=== PATIENT | female | born 1975 | race Caucasian/White ===

== ENCOUNTER → 2017-04-22 | Outpatient (CLI) | payer OTHER | END | disposition home or self-care (01) | LOC: NM 07:44 | DX: K30 Functional dyspepsia (principal) | CPT/HCPCS: 78264; A9541 ==

== ENCOUNTER → 2017-10-15 | Outpatient (CLI) | payer OTHER | END | disposition home or self-care (01) | LOC: ECHO 09:35 | DX: R00.2 Palpitations (principal) | CPT/HCPCS: 93306 ==

== ENCOUNTER → 2018-03-11 | Outpatient (CLI) | payer OTHER ==
[2018-01-10 11:00] VITALS: BP 85/55
[~2018-03-11] MED LIST: CYCL10TA2 PO; IOHEXOL 240 MG/ML 50ML VIAL. PO ONE; IOHEXOL 300 MG/ML 100ML VIAL. IV ONE; LEVO137T3 PO; LEVO150T PO
--- NOTE | 2018-03-11 15:38 | RAD ---
Examination: CT of the abdomen pelvis with oral and IV contrast HISTORY: History of abdominal pain COMPARISON: None available TECHNIQUE: Axial CT images of the abdomen pelvis were performed with oral and IV contrast. Coronal and sagittal reformats are performed Exposure: One or more of the following individualized dose reduction techniques were utilized for this examination: 1. Automated exposure control 2. Adjustment of the mA and/or kV according to patient size 3. Use of iterative reconstruction technique FINDINGS: The bibasilar lungs are clear No evidence of free air identified in the abdomen Mild decreased attenuation noted in the liver likely hepatic steatosis. The visualized spleen, adrenals grossly appears unremarkable The gallbladder is not identified Small hiatal hernia is noted. The stomach is mildly distended The visualized pancreas grossly appears unremarkable The small bowel is nondilated There is mild thickened appearance of the wall of the descending colon and the distal aspect of the ascending colon could be nondistention or mild colitis. The appendix is normal. The bilateral kidneys enhance symmetrically. Urinary bladder is mildly distended No evidence of lytic bony destructive lesion IMPRESSION: 1. Mild thickened appearance of the wall of the descending colon and the distal aspect of the ascending colon probably due to nondistention or colitis. Correlate clinically. 2. Mild hepatic steatosis. Electronically signed by: Augusto Dubon MD (03/11/2018 3:35 PM) [place] [id number]
== END | disposition home or self-care (01) ==
LOC: CT 12:17
PROVIDERS: ATTEND Internal Medicine Gastroenterology
DX: K76.0 Fatty (change of) liver, not elsewhere classified (principal); K44.9 Diaphragmatic hernia without obstruction or gangrene; K31.89 Other diseases of stomach and duodenum
CPT/HCPCS: 74177; Q9966; Q9967

== ENCOUNTER → 2018-03-23 | Day surgery (SDC) | payer OTHER ==
[~2018-03-23] MED LIST changes: -IOHEXOL 240 MG/ML 50ML VIAL. PO ONE; -IOHEXOL 300 MG/ML 100ML VIAL. IV ONE; +IV RINGERS,LACTATED 1000ML 1,000 ML IV SCH; +LIDOCAINE 1% PF 2 ML VIAL. ID PRN; +LIDOCAINE 1% PF 2 ML VIAL. ONE; +ONDANSETRON PF 4 MG/2 ML VIAL. IV PRN; +PROCHLORPERAZINE 10 MG/2 ML VIAL. IV PRN; +PROPOFOL 40 ML IV ONE; +fentaNYL PF VIAL 100 MCG/2 ML VIAL IV PRN
[2018-03-23 10:00] VITALS: BP 103/56
== END | disposition home or self-care (01) ==
LOC: ENDOS 08:10
PROVIDERS: ATTEND Internal Medicine Gastroenterology
DX: K64.0 First degree hemorrhoids (principal); F32.9 Major depressive disorder, single episode, unspecified; E03.9 Hypothyroidism, unspecified; Z95.0 Presence of cardiac pacemaker; Z88.5 Allergy status to narcotic agent; Z88.0 Allergy status to penicillin; Z79.899 Other long term (current) drug therapy; Z90.49 Acquired absence of other specified parts of digestive tract; Z90.710 Acquired absence of both cervix and uterus; Z98.890 Other specified postprocedural states; Z98.51 Tubal ligation status; Z82.49 Family history of ischemic heart disease and other diseases of the circulatory system
CPT/HCPCS: 45378; J2704

== ENCOUNTER 2018-06-15 21:35 | Emergency (ER) | payer OTHER ==
[2018-05-01 12:00] VITALS: BP 95/49
[~2018-06-15 21:35] MED LIST changes: +FLEC100T PO; -IV RINGERS,LACTATED 1000ML 1,000 ML IV SCH; +LEVO150T5 PO; +LEVO175T5 PO; -LIDOCAINE 1% PF 2 ML VIAL. ID PRN; -LIDOCAINE 1% PF 2 ML VIAL. ONE; +METO25TA4 PO; -ONDANSETRON PF 4 MG/2 ML VIAL. IV PRN; -PROCHLORPERAZINE 10 MG/2 ML VIAL. IV PRN; -PROPOFOL 40 ML IV ONE; -fentaNYL PF VIAL 100 MCG/2 ML VIAL IV PRN
== END 2018-06-15 23:12 | disposition left against medical advice (07) ==
LOC: ER 21:35
DX: R07.89 Other chest pain (principal); J02.9 Acute pharyngitis, unspecified; R05 Cough; Z53.21 Procedure and treatment not carried out due to patient leaving prior to being seen by health care provider

== ENCOUNTER → 2018-09-04 | Outpatient (CLI) | payer OTHER ==
[2018-05-01 12:00] VITALS: BP 95/49
--- NOTE | 2018-09-04 12:01 | RAD ---
EXAM: SMALL BOWEL SERIES. HISTORY: Right abdominal pain. COMPARISON: None. FINDINGS: A breast worker image demonstrates a normal bowel gas pattern. Pacemaker leads are partially visualized. Barium contrast material was administered orally and followed in its course through the small bowel with plain radiographs and fluoroscopy. 5 fluoroscopic images were obtained. Fluoroscopy time 0.4 minutes. The small bowel fold pattern appears normal. No small bowel lesions, strictures or dilatation are identified. The terminal ileum appears normal. Transit time was normal at approximately one hour. IMPRESSION: 1. Unremarkable small bowel series. Electronically signed by: Norm Marrero MD (09/04/2018 11:58 AM) [facility]
== END | disposition home or self-care (01) ==
LOC: RAD 08:52
PROVIDERS: ATTEND Internal Medicine Gastroenterology
DX: R10.9 Unspecified abdominal pain (principal)
CPT/HCPCS: 74250

== ENCOUNTER → 2018-09-11 | Outpatient (CLI) | payer OTHER ==
[2018-05-01 12:00] VITALS: BP 95/49
--- NOTE | 2018-09-11 17:32 | KCIC ---
BILATERAL SCREENING MAMMOGRAM History: Routine screening. Comparison: Bilateral mammogram February 07, 2014. Technique: Routine bilateral digital mammogram views were obtained. Findings: Breast Tissue Density B : There are scattered areas of fibroglandular density. A mole marker is seen in the left axilla that is marking a keloid from pacemaker. There are microcalcifications in this location that may be related to the keloid. The microcalcifications and pacer were not present on prior study. Stable benign calcification in the central left breast. There are no dominant masses, suspicious microcalcifications, or architectural distortion. IMPRESSION: No mammographic evidence of malignancy. Recommend routine screening. BI-RADS category 2: Benign findings. The images were reviewed with computer aided detection. Patient information is entered into the reminder system with a target due date for the next screening mammogram. Mammography is the most sensitive method for finding small breast cancers, but it does not detect them all and is not a substitute for careful clinical examination. A negative mammogram does not negate a clinically suspicious finding and should not result in delay in biopsying a clinically suspicious abnormality. "Our facility is accredited by the [employer] Mammography Program." Electronically signed by: Jovanny Echavarria MD (09/11/2018 5:29 PM) [id number]
== END | disposition home or self-care (01) ==
LOC: KCIC MAMMO 08:36
PROVIDERS: ATTEND Family Medicine
DX: Z12.31 Encounter for screening mammogram for malignant neoplasm of breast (principal); N64.89 Other specified disorders of breast
CPT/HCPCS: 77067

== ENCOUNTER → 2019-03-08 | Outpatient (CLI) | payer MEDICAID ==
[2018-05-01 12:00] VITALS: BP 95/49
[~2019-03-08] MED LIST changes: +REGADENOSON 0.4 MG/5 ML DISP.SYRIN. IV ONE
--- NOTE | 2019-03-08 14:18 | RAD ---
MR#: [id number] Date of Study: 03/08/2019 Ordering Physician: BECK ROMERO, Referring Physician: BLANCA HOFFMANN Tech: MACHO Kaplan ARRT (R) (N) APPROVED REPORT Test Type: Pharmacological Stress Nurse/Tech: Ronda James RN Test Indications: Chest pain Cardiac History: Pacemaker Medications: See Electronic Medical Record Medical History: See Electronic Medical Record Resting ECG: SR Resting Heart Rate: 65 bpm Resting Blood Pressure: 112/54mmHg Pretest Chest Pain: No chest pain Nurse/Tech Notes S1S2, Lungs CTA Consent: The procedure was explained to the patient in lay terms. Informed consent was witnessed. Savage eout was entered into [employer]. History and Stress Test performed by RT Perri Walker) (N) Pharm. Details Pharmacologic stress testing was performed using 0.4mg per 5ml of regadenoson given intravenously ove r 7-10 seconds. Stress Symptoms Dyspnea, Fatigue, Nausea, Flushing, stomach and leg cramping. POST EXERCISE Reason for Termination: Infusion complete Max HR: 120 bpm Max Blood Pressure: 127/73mmHg Blood Pressure response to exercise: Normal blood pressure response during stress. Heart Rate response to exercise: WNL Chest Pain: No. Arrhythmia: No. ST Change: No. INTERPRETATION Stress EKG Conclusion: No evidence of vasodilator induced EKG changes. Imaging Protocol IMAGE PROTOCOL: Rest Tc-99m/stress Tc-99m 1 day Rest: Stress: Viability: Radiopharm.Tc99m SozbbpxwmDy11z Sestamibi Mivd03pYo 33mCi Img Date 03/08/2019 03/08/2019 Inj-Img Hzmd52kat. 60min. Rest Admin Site:IV - Right AntecubitalAdministrator:MACHO Kaplan ARRT (R)(N) Stress Admin Site: IV - Right AntecubitalAdministrator: RT Perri Walker)(N) STRESS DATA End Diast. Vol.87.0mlLVEDV index BSA46.0ml End Syst. Vol.17.0mlLVESV index BSA9.0ml Myocardial Jcor482.0gEject. Inqykxtb91.5% Stress Scores Regional WT0.00Summed WT0.00 Regional WM0.00Summed WM1.00 The rest and stress images show normal perfusion, normal contraction and thickening. LV Perf. Quant 17 Seg. SSS0.00 17 Seg. SRS0.00 17 Seg. SDS0.00 Stress Defect Extent (% LAD)0.00Rest Defect Extent (% LAD)0.00Rev. Defect Extent (% LAD)0.00 Stress Defect Extent (% LCX) 0.00Rest Defect Extent (% LCX)0.00Rev. Defect Extent (% LCX)0.00 Stress Defect Extent (% RCA)0.00Rest Defect Extent (% RCA)0.00Rev. Defect Extent (% RCA)0.00 Stress Defect Extent (% MARTÍN)0.00Rest Defect Extent (% MARTÍN)0.00Rev. Defect Extent (% MARTÍN)0.00 Other Information Quality:Average Risk Assessment: Low Risk Conclusion 1. No evidence of EKG changes with stress testing. 2. Normal perfusion at stress/rest. 3. Low risk study. 4. EF > 60%. Signed by : Chris Leonard, Electronically Approved : 03/08/2019 14:18:00
--- NOTE | 2019-03-08 15:32 | CARD ---
MR#: [id number] Date of Study: 03/08/2019 Ordering Physician: BECK ROMERO, Referring Physician: BECK ROMERO Tech: Fidelina Banks RDCS APPROVED REPORT EXAM: Two-dimensional and M-mode echocardiogram with Doppler and color Doppler. Other Information Quality : Good INDICATION Sick Sinus Syndrome-Pacemaker 2D DIMENSIONS RVDd2.5 (2.9-3.5cm)Left Atrium(2D)3.4 (1.6-4.0cm) IVSd1.0 (0.7-1.1cm)Aortic Root(2D)2.8 (2.0-3.7cm) LVDd4.3 (3.9-5.9cm)LVOT Diameter2.1 (1.8-2.4cm) PWd1.0 (0.7-1.1cm)LVDs3.1 (2.5-4.0cm) FS (%) 28.5 %SV46.3 ml LVEF(%)55.2 (>50%) Aortic Valve AoV Peak Elder.144.3cm/sAoV VTI29.0cm AO Peak GR.8.3mmHgLVOT Peak Elder.146.1cm/s AO Mean GR.5mmHgAVA (VMAX)3.54cm2 WINIFRED (VTI)3.50cm2 Mitral Valve MV E Onoveqda248.5cm/sMV DECEL ZVSJ764cr MV A Xhsjgwup64.2cm/sE/A Ratio1.9 Tricuspid Valve TR P. Msjvdeyi669yh/sRAP PJZKYDEZ9cpBy TR Peak Gr.31yoRtPZMB59saDt Pulmonary Vein S1 Gimduhqt94.7cm/sD2 Zjymsjgx36.7cm/s LEFT VENTRICLE The left ventricle is normal size. There is normal left ventricular wall thickness. The left ventricu lar systolic function is normal and the ejection fraction is within normal range. The Ejection Fracti on is 55-60%. There is normal LV segmental wall motion. The left ventricular diastolic function and f illing is normal for age. RIGHT VENTRICLE The right ventricle is normal size. The right ventricular systolic function is normal. There is a pac emaker lead in the right ventricle. ATRIA The left atrium size is normal. The right atrium size is normal. A pacemaker is seen in the right atr ium consistent with history. The interatrial septum is intact with no evidence for an atrial septal d efect or patent foramen ovale as noted on 2-D or Doppler imaging. AORTIC VALVE The aortic valve is normal in structure and function. Doppler and Color Flow revealed no significant aortic regurgitation. There is no significant aortic valvular stenosis. MITRAL VALVE The mitral valve is normal in structure and function. There is no evidence of mitral valve prolapse. There is no mitral valve stenosis. Doppler and Color-flow revealed trace mitral regurgitation. TRICUSPID VALVE The tricuspid valve is normal in structure and function. Doppler and Color Flow revealed mild tricusp id regurgitation. The PA pressure was estimated at 23 mmHg. There is no tricuspid valve stenosis. PULMONIC VALVE The pulmonic valve is not well visualized. Doppler and Color Flow revealed no pulmonic valvular regur gitation. There is no pulmonic valvular stenosis. GREAT VESSELS The aortic root is normal in size. The ascending aorta is normal in size. The IVC is normal in size a nd collapses >50% with inspiration. PERICARDIAL EFFUSION There is no evidence of significant pericardial effusion. Critical Notification Critical Value: No <Conclusion> The left ventricular systolic function is normal and the ejection fraction is within normal range. Th e Ejection Fraction is 55-60%. There is normal LV segmental wall motion. There is a pacemaker lead in the right ventricle. Signed by : Chris Leonard, Electronically Approved : 03/08/2019 15:31:41
== END | disposition home or self-care (01) ==
LOC: NM 09:02
PROVIDERS: ATTEND Internal Medicine Cardiovascular Disease
DX: I36.1 Nonrheumatic tricuspid (valve) insufficiency (principal); I49.5 Sick sinus syndrome; R25.2 Cramp and spasm; R06.09 Other forms of dyspnea; R53.83 Other fatigue; R11.0 Nausea; Z95.0 Presence of cardiac pacemaker
CPT/HCPCS: 78452; 93017; 93306; A9500; J2785

== ENCOUNTER → 2019-06-23 | Outpatient (CLI) | payer MEDICAID ==
[2018-05-01 12:00] VITALS: BP 95/49
[~2019-06-23] MED LIST changes: +IOHEXOL 240 MG/ML 50ML VIAL. PO ONE; +IOHEXOL 300 MG/ML 100ML VIAL. IV ONE; -REGADENOSON 0.4 MG/5 ML DISP.SYRIN. IV ONE
--- NOTE | 2019-06-23 13:16 | KCIC ---
Examination: CT ABD PELV W/ORAL IV CONTRAST History: Right lower quadrant pain Comparison/Correlation: 03/11/2018 CT abdomen and pelvis with contrast Findings: Axial images of the abdomen and pelvis were obtained following IV and oral contrast. Sagittal and coronal reformatted images were provided. There are 2 pacemaker leads identified. Small hiatal hernia is present. Visualized lung bases are clear. Cholecystectomy noted. Liver, spleen, pancreas, adrenal glands, and kidneys are normal. Appendix is normal. Lymph nodes are present posterior to the cecum. Small umbilical hernia contains omental fat. Hysterectomy noted. Bladder is unremarkable. Moderate quantity of stool involving the proximal ulna and the colon is evident. Appendix is normal. No ascites or pelvic free fluid. Bony structures are unremarkable. Impression: Small hiatal hernia. Few nonenlarged lymph nodes about the cecum and new since the prior exam raises the question of adenitis. Appendix is normal and there are no inflammatory findings about the cecum. PQRS Compliance Statement: One or more of the following individualized dose reduction techniques were utilized for this examination: 1. Automated exposure control 2. Adjustment of the mA and/or kV according to patient size 3. Use of iterative reconstruction technique Electronically signed by: Alessandro Beaulieu MD (06/23/2019 1:13 PM) [id number]
== END | disposition home or self-care (01) ==
LOC: KCIC CT 11:40
PROVIDERS: ATTEND Family Medicine
DX: K44.9 Diaphragmatic hernia without obstruction or gangrene (principal); K42.9 Umbilical hernia without obstruction or gangrene; Z90.710 Acquired absence of both cervix and uterus; Z90.49 Acquired absence of other specified parts of digestive tract; Z95.0 Presence of cardiac pacemaker
CPT/HCPCS: 74177; Q9966; Q9967

== ENCOUNTER → 2020-04-13 | Outpatient (CLI) | payer MEDICAID ==
[2018-05-01 12:00] VITALS: BP 95/49
[~2020-04-13] MED LIST changes: -IOHEXOL 240 MG/ML 50ML VIAL. PO ONE; -IOHEXOL 300 MG/ML 100ML VIAL. IV ONE
--- NOTE | 2020-04-13 13:18 | CARD ---
MR#: [id number] Date of Study: 04/13/2020 Ordering Physician: BECK ROMERO, Referring Physician: BECK ROMERO, Tech: Ritika Johnson [facility] APPROVED REPORT EXAM: Two-dimensional and M-mode echocardiogram with Doppler and color Doppler. Other Information Quality : AverageHR: 54bpm Rhythm : NSR INDICATION Surgery/Intervention ICD/Pacemaker: 2D DIMENSIONS RVDd3.5 (2.9-3.5cm)Left Atrium(2D)3.9 (1.6-4.0cm) IVSd0.9 (0.7-1.1cm)Aortic Root(2D)2.9 (2.0-3.7cm) LVDd4.4 (3.9-5.9cm)LVOT Diameter2.2 (1.8-2.4cm) PWd1.0 (0.7-1.1cm)IVSs1.4 (0.8-1.2cm) LVDs3.7 (2.5-4.0cm)FS (%) 16.1 % PWs0.7 (0.8-1.2cm)SV29.8 ml LVEF(%)34.1 (>50%) Aortic Valve AoV Peak Elder.131.2cm/Lovely Peak GR.6.9mmHg LVOT Peak Elder.118.8cm/sAVA (VMAX)2.69cm2 Mitral Valve MV E Dzsggiqp03.7cm/sMV DECEL BZMH637hx MV A Kxfshhvu08.8cm/sMV YQD62dm E/A Ratio1.3MVA (PHT)3.18cm2 TDI E/Lateral E'4.9E/Medial E'6.8 Pulmonary Valve PV Peak Eyfnnlbw24.5cm/sPV Peak Grad.4mmHg Tricuspid Valve TR P. Woowcpcd784eu/sTR Peak Gr.22mmHg Pulmonary Vein S1 Yjshbikf18.5cm/sD2 Wpalbkqs13.9cm/s PVa udtqnzwg428vowb LEFT VENTRICLE The left ventricle is normal size. There is normal left ventricular wall thickness. The left ventricu lar systolic function is normal and the ejection fraction is within normal range. EF 55% There is nor mal LV segmental wall motion. The left ventricular diastolic function and filling is normal for age. RIGHT VENTRICLE The right ventricle is normal size. There is normal right ventricular wall thickness. The right ventr icular systolic function is normal. There is a probable pacemaker lead noted in the RA/RV. ATRIA The left atrium size is normal. The right atrium size is normal. The interatrial septum is intact wit h no evidence for an atrial septal defect or patent foramen ovale as noted on 2-D or Doppler imaging. AORTIC VALVE The aortic valve is normal in structure and function. Doppler and Color Flow revealed no significant aortic regurgitation. There is no significant aortic valvular stenosis. MITRAL VALVE The mitral valve is normal in structure and function. There is no evidence of mitral valve prolapse. There is no mitral valve stenosis. Doppler and Color-flow revealed trace mitral regurgitation. TRICUSPID VALVE The tricuspid valve is normal in structure and function. Doppler and Color Flow revealed mild tricusp id regurgitation. Estimated PAP 25 mmHg. There is no tricuspid valve stenosis. PULMONIC VALVE Doppler and Color Flow revealed trace pulmonic valvular regurgitation. There is no pulmonic valvular stenosis. GREAT VESSELS The aortic root is normal in size. The ascending aorta is normal in size. The IVC is normal in size a nd collapses >50% with inspiration. PERICARDIAL EFFUSION There is no evidence of significant pericardial effusion. Critical Notification Critical Value: No <Conclusion> The left ventricular systolic function is normal and the ejection fraction is within normal range. EF 55% There is normal LV segmental wall motion. There is a probable pacemaker lead noted in the RA/RV. Signed by : Chris Leonard, Electronically Approved : 04/13/2020 13:18:06
== END ==
LOC: ECHO 09:49
PROVIDERS: ATTEND Internal Medicine Cardiovascular Disease
DX: I07.1 Rheumatic tricuspid insufficiency (principal); I49.5 Sick sinus syndrome; Z95.0 Presence of cardiac pacemaker
CPT/HCPCS: 93306

== ENCOUNTER → 2020-04-24 | Outpatient (CLI) | payer MEDICAID ==
[2018-05-01 12:00] VITALS: BP 95/49
--- NOTE | 2020-04-24 14:06 | RAD ---
Examination: Right lateral chest wall ultrasound INDICATION: Mass in the patient's back near the dorsal aspect of the right axilla. She has had previo us surgery in the chest wall this area COMPARISON: Abdomen and pelvis CT of 06/23/2019, bilateral screening mammogram of 09/11/2018 TECHNIQUE: Grayscale and color Doppler imaging of the area of palpable concern near the right axilla is performed. The contralateral axilla was imaged for comparison purposes. FINDINGS: There is focal thickening of the skin to 3.7 x 0.6 x 2.2 cm. No additional findings in the underlying subcutaneous soft tissues. IMPRESSION: Focal skin thickening, likely representing an intradermal seroma or Alexandr Lavalee Lesion. No drainab le fluid collection or soft tissue mass otherwise noted. . Electronically signed by: Joaquín Hunt MD (04/24/2020 2:04 PM) [id number]
--- NOTE | 2020-04-25 12:46 | RAD ---
EXAMINATION: MG 2D BILAT SCREENING CLINICAL HISTORY: Screening mammogram TECHNIQUE: Digital craniocaudal and mediolateral oblique views of the bilateral breasts obtained. COMPARISON: 09/11/2018 BREAST COMPOSITION: There are scattered areas of fibroglandular density. FINDINGS: 4 mm developing asymmetry right breast upper outer quadrant in the middle to posterior third at 10:30 position approximately 10 cm from the nipple, best appreciated on CC view. No evidence of suspicious mass in the left breast. No evidence of calcifications or areas of architectural distortion bilatera lly. IMPRESSION: Small developing asymmetry right breast upper-outer quadrant. BI-RADS ASSESSMENT: Category 0: Incomplete - Need Additional Imaging Evaluation and/or Prior Mammograms for Comparison RECOMMENDATION: Recommend further evaluation with spot compression views of the right breast and possible targeted ri ght breast ultrasound if indicated. PQRS compliance statement - Patient information was entered into a reminder system with a target due date for the next mammogram. "Our facility is accredited by the [employer] Mammography Program." Electronically signed by: Obed Erickson DO (04/25/2020 12:44 PM) [id number]
== END ==
LOC: US 13:30
PROVIDERS: ATTEND Surgery
DX: Z12.31 Encounter for screening mammogram for malignant neoplasm of breast (principal); N64.89 Other specified disorders of breast
CPT/HCPCS: 76641; 77067

== ENCOUNTER → 2020-05-16 | Outpatient (CLI) | payer MEDICAID ==
[2018-05-01 12:00] VITALS: BP 95/49
--- NOTE | 2020-05-17 11:35 | RAD ---
Examination: Right digital diagnostic mammogram. INDICATION: 45-year-old woman recalled from screening for asymmetry in the upper outer right breast. COMPARISON: 04/24/2020, 09/11/2018, 02/07/2014 mammograms TECHNIQUE: 2-D spot compression views of the right breast in the CC and MLO projections were obtained in addition to full field right ML view which was reviewed with computer-aided detection. FINDINGS: Scattered fibroglandular densities. The questioned asymmetry did not persist on additional mammographic views. IMPRESSION: Negative right diagnostic mammogram. No evidence of malignancy. BI-RADS Category 1 Negative Recommend return to routine screening next due in one year. Patient entered into a reminder system with targeted due date for next mammogram. Electronically signed by: Joaquín Hunt MD (05/17/2020 11:33 AM) [id number]
== END ==
LOC: MAMMO 12:58
PROVIDERS: ATTEND Surgery
DX: R92.8 Other abnormal and inconclusive findings on diagnostic imaging of breast (principal)
CPT/HCPCS: 77065

== ENCOUNTER 2021-05-03 23:38 | Inpatient (IN) | payer MEDICAID ==
[~2021-05-03] VITALS: Ht 162.6 cm; Wt 89.0 kg
[~2021-05-03 23:38] MED LIST changes: +CYCL10TA19 PO; -CYCL10TA2 PO
--- NOTE | 2021-05-03 23:55 | PHYS DOC ---
Past Medical History Past Medical History: Hypothyroid Additional Past Medical Histor: sick sinus syndrome Past Surgical History: Pacemaker Smoking Status: Never Smoker Alcohol Use: None Drug Use: None General Adult EDM: Chief Complaint: RAPID HEART RATE HPI: HPI: Patient is a 46-year-old female presenting with via POV for palpitations. Reports symptom onset was 2 hours ago while at rest watching TV in bed attempting to fall asleep. Nothing known makes better or worse. Patient reports feelings of chest palpitations with subsequently made her nauseous, anxious and reports she felt some radiation of pain from left breast to left shoulder. Timing of symptoms waxed and waned since onset but ongoing chronicity of symptoms concerned her prompting to bring her in for evaluation. States she has feelings of palpitations most days out of the week but they do not last as long as they did today which concerned her. She is well established in outpatient setting with [facility] cardiology group as she has history of sick sinus syndrome status post dual chamber pacemaker placed in 2018. She is actually scheduled to have an outpatient echocardiogram next week. Otherwise states she is at baseline health with no other major changes in medication or chronic comorbid conditions. Reports her hypothyroidism specifically is well managed by primary care physician in outpatient setting. She is fully vaccinated against COVID-19 Review of Systems: Review of Systems: Fourteen body systems of review of systems have been reviewed. See HPI for pertinent positives and negative responses, other arenas all other systems are negative, non-pertinent or non-contributory Heart Score: C/O Chest Pain: Yes HEART Score for Chest Pain: HEART Score for Chest Pain Response (Comments) Value History Moderately Suspicious 1 ECG Normal 0 Age >45 - < 65 1 Risk Factors 1 or 2 Risk Factors 1 Troponin < Normal Limit 0 Total 3 Risk Factors: Risk Factors: DM, Current or recent (<one month) smoker, HTN, HLP, family history of CAD, obesity. Risk Scores: Score 0 - 3: 2.5% MACE over next 6 weeks - Discharge Home Score 4 - 6: 20.3% MACE over next 6 weeks - Admit for Clinical Observation Score 7 - 10: 72.7% MACE over next 6 weeks - Early Invasive Strategies Allergies: Allergies: Allergies Coded Allergies Type Severity Reaction Last Updated Verified Penicillins Allergy Intermediate 08/26/13 Yes morphine Allergy Intermediate 01/10/18 Yes Physical Exam: PE: Constitutional: Well developed, well nourished, no acute distress, non-toxic appearance. HENT: Normocephalic, atraumatic, bilateral external ears normal, oropharynx moist, no oral exudates, nose normal. Eyes: PERRLA, EOMI, conjunctiva normal, no discharge. Neck: Normal range of motion, no tenderness, supple, no stridor. Cardiovascular: Heart rate regular, sinus rhythm, no murmurs rubs or gallops. Left upper outer pacemaker present Lungs & Thorax: Bilateral breath sounds clear to auscultation Abdomen: Bowel sounds normal, soft, no tenderness, no masses, no pulsatile masses. Nonsurgical abdomen, no peritoneal signs Skin: Warm, dry, no erythema, no rash. Back: No tenderness, no CVA tenderness. Extremities: No tenderness, no cyanosis, no clubbing, ROM intact, no edema. Neurologic: Alert and oriented X 3, grossly normal motor & sensory function, no focal deficits noted. Psychologic: Anxious affect and mood Current Patient Data: Labs: Laboratory Tests Test 05/04/21 00:01 05/04/21 00:30 05/04/21 01:10 White Blood Count 8.0 x10^3/uL Red Blood Count 3.85 x10^6/uL Hemoglobin 12.5 g/dL Hematocrit 36.3 % Mean Corpuscular Volume 94 fL Mean Corpuscular Hemoglobin 32 pg Mean Corpuscular Hemoglobin Concent 34 g/dL Red Cell Distribution Width 12.6 % Platelet Count 209 x10^3/uL Neutrophils (%) (Auto) 49 % Lymphocytes (%) (Auto) 41 % Monocytes (%) (Auto) 9 % Eosinophils (%) (Auto) 1 % Basophils (%) (Auto) 1 % Neutrophils # (Auto) 3.9 x10^3/uL Lymphocytes # (Auto) 3.3 x10^3/uL Monocytes # (Auto) 0.7 x10^3/uL Eosinophils # (Auto) 0.1 x10^3/uL Basophils # (Auto) 0.0 x10^3/uL Sodium Level 142 mmol/L Potassium Level 4.1 mmol/L Chloride Level 109 mmol/L Carbon Dioxide Level 26 mmol/L Anion Gap 7 Blood Urea Nitrogen 14 mg/dL Creatinine 1.0 mg/dL Estimated GFR (Cockcroft-Gault) 60.0 Glucose Level 115 mg/dL Calcium Level 8.1 mg/dL Magnesium Level 2.0 mg/dL Troponin I High Sensitivity < 4 ng/L SR-Lrg-[id number]-Type Natriuretic Peptide 150 pg/mL SARS-CoV-2 Antigen (Rapid) Negative Urine Opiates Screen Neg Urine Methadone Screen Neg Urine Barbiturates Neg Urine Phencyclidine Screen Neg Urine Amphetamine/Methamphetamine Neg Urine Benzodiazepines Screen Neg Urine Cocaine Screen Neg Urine Cannabinoids Screen Neg Urine Ethyl Alcohol Neg Current Medications Medications (Trade) Dose Ordered Sig/Jairo Route PRN Reason Start Time Stop Time Status Last Admin Dose Admin Aspirin (Aspirin Chewable) 324 mg 1X ONCE PO 05/04/21 00:15 05/04/21 00:16 DC 05/04/21 00:34 Acetaminophen (Tylenol) 650 mg PRN Q4HRS PRN PO FEVER > 100.3'F 05/04/21 01:30 05/05/21 01:29 UNV Nitroglycerin (Nitrostat) 0.4 mg PRN Q5MIN PRN SL CHEST PAIN 05/04/21 01:30 05/05/21 01:29 UNV Vital Signs: Vital Signs Date Time Temp Pulse Resp B/P (MAP) Pulse Ox O2 Delivery O2 Flow Rate FiO2 05/03/21 23:45 98.0 83 16 113/56 (75) 99 Room Air 98.0 Vital Signs Date Time Temp Pulse Resp B/P (MAP) Pulse Ox O2 Delivery O2 Flow Rate FiO2 05/03/21 23:45 98.0 83 16 113/56 (75) 99 Room Air 98.0 EKG: EKG: EKG ordered and interpreted by myself 2351 hrs. as sinus rhythm at 72 bpm, prolonged WA at 216 otherwise unremarkable intervals, no axis deviation, no obvious ischemic findings, no STEMI Repeat EKG ordered and interpreted during time of palpitations by myself at 0145 hrs. as an atrial paced rhythm at 60 bpm, prolonged QRS at 162, QTC at 477, left axis deviation, T wave inversion noted in lead aVL, no STEMI Radiology/Procedures: Radiology/Procedures: EXAM: CHEST ONE VIEW. HISTORY: Palpitations. COMPARISON: None. FINDINGS: A frontal view of the chest is obtained. A left-sided pacemaker has its leads in the right atrium and right ventricle. There is a mild airspace opacity in the right base. There is no pneumothorax or pleural effusion. The heart is not enlarged. IMPRESSION: 1. Mild right basilar infiltrate. Electronically signed by: Norm Marrero MD (05/04/2021 12:56 AM) [facility] Course & Med Decision Making: Course & Med Decision Making ABCs unremarkable HPI physical exam and comprehensive ER work-up nonconcerning for any emergent or surgical process I disclosed all findings of ER work-up with patient and at bedside with good understanding. I disclose finding of right lower lobe infiltrate that was mild in nature, patient and requested this be treated and so IV azithr omycin and administered Patient had repeat episode of palpitations and chest pain while in ER that was subsequently captured EKG, patient being sufficiently paced in an atrial rhythm with no STEMI/ischemic findings. Heart score reviewed, joint decision made to continue treatment of pneumonia and admit for continued chest pain rule out ACS and cardiology consultation. She is pending echocardiogram next week in outpatient setting, this will likely be performed in the morning. I contacted hospitalist and cardiology services and reviewed need for hospitalization for which they accepted patient for admission. Patient and notified, they were amenable for admission and plan of care as stated. All questions and concerns addressed prior to hospitalization Dragon Disclaimer: Dragon Disclaimer: This electronic medical record was generated, in whole or in part, using a voice recognition dictation system. Departure Departure Impression: Primary Impression: Sick sinus syndrome Additional Impressions: Pacemaker Chest pain RLL pneumonia Disposition: ADMITTED INPATIENT Admitting Physician: DAWN (DR MONTERO) Condition: STABLE Referrals: RYANNE LAWSON MD (PCP) JUDAH ABEL DO May 03, 2021 23:55
[2021-05-04] MEDS ORDERED: ASPIRIN CHEWABLE 81 MG TABLET. PO ONE (00:15)
[2021-05-04 00:23] LABS: BASO % 1 % (0-3); EOS # 0.1 x10^3/uL (0.0-0.7); EOS % 1 % (0-3); HEMATOCRIT 36.3 % (36.0-47.0); HEMOGLOBIN 12.5 g/dL (12.0-15.5); LYMPH # 3.3 x10^3/uL (1.0-4.8); LYMPH % 41 % (24-48); MEAN CORPUSCULAR HEMOGLOBIN 32 pg (25-35); MEAN CORPUSCULAR HGB CONC 34 g/dL (31-37); MEAN CORPUSCULAR VOLUME 94 fL (79-100); MONO # 0.7 x10^3/uL (0.0-1.1); MONO % 9 % (0-9); NEUT # 3.9 x10^3/uL (1.8-7.7); NEUT % 49 % (31-73); PLATELET COUNT 209 x10^3/uL (140-400); RED BLOOD COUNT 3.85 x10^6/uL (3.50-5.40); RED CELL DISTRIBUTION WIDTH 12.6 % (11.5-14.5)
[2021-05-04 00:33] LABS: CALCIUM 8.1 mg/dL (8.5-10.1); POTASSIUM 4.1 mmol/L (3.5-5.1)
--- NOTE | 2021-05-04 00:59 | RAD ---
EXAM: CHEST ONE VIEW. HISTORY: Palpitations. COMPARISON: None. FINDINGS: A frontal view of the chest is obtained. A left-sided pacemaker has its leads in the right atrium and right ventricle. There is a mild airspace opacity in the right base. There is no pneumothorax or pleural effusion. The heart is not enlarged. IMPRESSION: 1. Mild right basilar infiltrate. Electronically signed by: Norm Marrero MD (05/04/2021 12:56 AM) [facility]
[2021-05-04 01:25] LABS: BARBITURATES NEG (NEG); BENZODIAZEPINES NEG (NEG); CANNABINOIDS NEG (NEG); COCAINE NEG (NEG); METHADONE NEG (NEG); OPIATES NEG (NEG); PHENCYCLIDINE NEG (NEG)
[2021-05-04 01:27] LABS: AMPHETAMINE/METHAMPHETAMINE NEG (NEG)
[2021-05-04] MEDS ORDERED: NITROGLYCERIN SUBLINGUAL 0.4 MG BOTTLE OF 25. SL PRN (01:30)
[2021-05-04] MEDS ORDERED: ACETAMINOPHEN 325 MG TABLET. PO PRN (01:30)
[2021-05-04] MEDS ORDERED: AZITHROMYCIN 500 MG in IV NORMAL SALINE 250ML 250 ML IV ONE (02:00)
[2021-05-04 03:08] VITALS: BP_SYST 99; BP_DIAS 57; BP_DIAS 63
[2021-05-04] MEDS ORDERED: LEVO75TA5 PO (03:36)
[2021-05-04] MEDS ORDERED: TOPI25TA7 PO (03:36)
[2021-05-04] MEDS ORDERED: TIZA-75 PO (03:36)
[2021-05-04] MEDS ORDERED: LEVO200T5 PO (03:36)
[2021-05-04 07:46] VITALS: BP 96/55
--- NOTE | 2021-05-04 09:01 | EKG ---
[facility] [address] [place] [address] Test Date: 2021-05-04 Test Time: 01:41:13 Pat Name: BETSY DAVIS Department: Room: [facility] Gender: F Podiatrist: : 1975 Requested By: JUDAH ABEL Order Number: [id number] Reading MD: Brock Beard Measurements Intervals [place] Rate: 60 P: [place]: QRS: -67 QRSD: 162 T: 74 QT: 472 QTc: 477 Interpretive Statements SINUS RHYTHM V PACED Electronically Signed On 05-04-2021 14:46:09 MECHANICAL METER TESTER by Brock Beard
--- NOTE | 2021-05-04 09:06 | EKG ---
[facility] [address] [place] [address] Test Date: 2021-05-03 Test Time: 23:45:40 Pat Name: BETSY DAVIS Department: Room: [facility] Gender: F Home Energy Consultant: : 1975 Requested By: JUDAH ABEL Order Number: [id number] Reading MD: Brock Beard Measurements Intervals [place] Rate: 72 P: 28 UT: 216 QRS: 45 QRSD: 86 T: 24 QT: 404 QTc: 444 Interpretive Statements SINUS RHYTHM Electronically Signed On 05-04-2021 14:47:50 CADDY/CADDIE SUPERVISOR by Brock Beard
[2021-05-04 11:00] VITALS: BP 98/65
--- NOTE | 2021-05-04 11:28 | PDOC2 ---
SHRUTHI FLORES EQUITY RESEARCH ASSOCIATE 05/04/21 1128: CARDIAC CONSULT DATE OF CONSULT Date of Consult DATE: 05/04/21 TIME: 11:16 REASON FOR CONSULT Reason for Consult: SSS, chest pain REFERRING PHYSICIAN Referring Physician: Asim SOURCE Source: Chart review, Patient HISTORY OF PRESENT ILLNESS HISTORY OF PRESENT ILLNESS This is a pleasant 46 yo female admitted for complains of palpitations. Reports that she was sitting at home last night and reports her HR fluctuating from 60- 90 without her doing anything. Also felt a little SOA at that time but denies chest pain. No nausea or vomiting. No dizziness or passing out. No recent falls or injury and compliant with her metoprolol. Reports no stimulants overusage of caffeinated beverages. Reports that she has been stressed and anxious with her 27 yo son who is now staying with her. Her son was recently discharge from having pancreatitis related to alcohol and was sober and has started drinking again. PAST MEDICAL HISTORY Cardiovascular: Other (SSS/tachy christiano syndrome) Endocrine: Hypothyroidism PAST SURGICAL HISTORY Past Surgical History Pacemaker, Cholecystectomy, Tubal Ligation, Hysterectomy FAMILY HISTORY Family History: Hypertension SOCIAL HISTORY Smoke: No ALCOHOL: none Drugs: None Lives: with Family CURRENT MEDICATIONS CURRENT MEDICATIONS Current Medications Medications (Trade) Dose Ordered Sig/Jairo Route PRN Reason Start Time Stop Time Status Last Admin Dose Admin Aspirin (Aspirin Chewable) 324 mg 1X ONCE PO 05/04/21 00:15 05/04/21 00:16 DC 05/04/21 00:34 Azithromycin 500 mg/Sodium Chloride 250 ml @ 250 mls/hr 1X ONCE IV 05/04/21 02:00 05/04/21 02:59 DC 05/04/21 02:11 ALLERGIES ALLERGIES: Coded Allergies: Penicillins (Verified Allergy, Intermediate, 05/04/21) morphine (Verified Allergy, Intermediate, 05/04/21) ROS Review of System 14 point ROS evaluated with pertinent positives noted per HPI PHYSICAL EXAM General: Alert, Oriented X3, Cooperative, No acute distress HEENT: Atraumatic, Mucous membr. moist/pink Lungs: Clear to auscultation, Normal air movement Heart: Regular rate (V paced), Normal S1, Normal S2 Abdomen: Soft, No tenderness Extremities: No cyanosis, No edema Skin: No breakdown, No significant lesion Neuro: Normal speech, Sensation intact Psych/Mental Status: Mental status NL, Mood NL MUSCULOSKELETAL: Full range of motion without pain VITALS/I&O VITALS/I&O: Vital Signs Date Time Temp Pulse Resp B/P (MAP) Pulse Ox O2 Delivery O2 Flow Rate FiO2 05/04/21 08:20 Room Air 05/04/21 07:46 97.8 59 20 96/55 (69) 99 97.8 I & O 05/03/21 05/03/21 05/04/21 15:00 23:00 07:00 Intake Total 0 ml Balance 0 ml LABS Lab: Laboratory Tests Test 05/04/21 00:01 05/04/21 00:30 05/04/21 01:10 05/04/21 07:45 White Blood Count 8.0 x10^3/uL (4.0-11.0) Red Blood Count 3.85 x10^6/uL (3.50-5.40) Hemoglobin 12.5 g/dL (12.0-15.5) Hematocrit 36.3 % (36.0-47.0) Mean Corpuscular Volume 94 fL (79-100) Mean Corpuscular Hemoglobin 32 pg (25-35) Mean Corpuscular Hemoglobin Concent 34 g/dL (31-37) Red Cell Distribution Width 12.6 % (11.5-14.5) Platelet Count 209 x10^3/uL (140-400) Neutrophils (%) (Auto) 49 % (31-73) Lymphocytes (%) (Auto) 41 % (24-48) Monocytes (%) (Auto) 9 % (0-9) Eosinophils (%) (Auto) 1 % (0-3) Basophils (%) (Auto) 1 % (0-3) Neutrophils # (Auto) 3.9 x10^3/uL (1.8-7.7) Lymphocytes # (Auto) 3.3 x10^3/uL (1.0-4.8) Monocytes # (Auto) 0.7 x10^3/uL (0.0-1.1) Eosinophils # (Auto) 0.1 x10^3/uL (0.0-0.7) Basophils # (Auto) 0.0 x10^3/uL (0.0-0.2) Sodium Level 142 mmol/L (136-145) Potassium Level 4.1 mmol/L (3.5-5.1) Chloride Level 109 mmol/L (98-107) H Carbon Dioxide Level 26 mmol/L (21-32) Anion Gap 7 (6-14) Blood Urea Nitrogen 14 mg/dL (7-20) Creatinine 1.0 mg/dL (0.6-1.0) Estimated GFR (Cockcroft-Gault) 60.0 Glucose Level 115 mg/dL (70-99) H Calcium Level 8.1 mg/dL (8.5-10.1) L Magnesium Level 2.0 mg/dL (1.8-2.4) Troponin I High Sensitivity < 4 ng/L (4-50) L 4 ng/L (4-50) BD-Vyu-J-Type Natriuretic Peptide 150 pg/mL (0-124) H SARS-CoV-2 RNA (PEDRO) Negative (Negative) SARS-CoV-2 Antigen (Rapid) Negative (NEGATIVE) Urine Opiates Screen Neg (NEG) Urine Methadone Screen Neg (NEG) Urine Barbiturates Neg (NEG) Urine Phencyclidine Screen Neg (NEG) Urine Amphetamine/Methamphetamine Neg (NEG) Urine Benzodiazepines Screen Neg (NEG) Urine Cocaine Screen Neg (NEG) Urine Cannabinoids Screen Neg (NEG) Urine Ethyl Alcohol Neg (NEG) Laboratory Tests 05/04/21 00:01 Laboratory Tests 05/04/21 00:01 ASSESSMENT/PLAN ASSESSMENT/PLAN 1. Palpitations: likely induced by anxiety. No CP 2. SSS with PPM in situ: (biotronik) intermittent V pacing. Device check noted nml with no significnat arrhythmia 3. Hypothyroidism 4. Anxiety; defer to PCP Recommendations 1. Continue home metoprolol as BP allows. Check TSH 2. TTE next week as an outpt as scheduled 3. May DC from cardiac perspective BECK ROMERO MD 05/04/211821: CARDIAC CONSULT ASSESSMENT/PLAN ASSESSMENT/PLAN Patient seen and examined. Agree with SPECIAL EDUCATION TEACHER's assessment and plan Palpitations prob due to anxiety PPM check did not show any significant arrhythmias SSS s/p PPM stable 2D echo next week as scheduled OK to DC from cardiac standpoint Thank you for your consultation SHRUTHI FLORES APRN May 04, 2021 11:28 BECK ROMERO MD May 04, 2021 18:22
--- NOTE | 2021-05-04 11:45 | PDOC1 ---
History and Physical Date of Admission Date of Admission DATE: 05/04/21 TIME: 11:43 Identification/Chief Complaint Chief Complaint Palpitations Source Source: Patient History of Present Illness History of Present Illness Ms. Quintana is a 46-year-old female with past medical history of hypothyroidism, sick sinus syndrome status post dual-chamber pacemaker. 2018 who comes to the ED on 05/03/2021 accompanied by her complaining of persistent palpitations. Palpitations began when she was going to bed and she tried relaxation maneuvers to no avail. She became nauseated and felt chest pressure and became diaphoretic she felt tingling into her her left jaw shoulder and came to the ED. She has been under significant stress recently because her son in his late 20s lives with her and has been recurrently admitted for alcoholic pancreatitis and continues to drink in the home. She is also stressed about the recent of her mother from COVID-19. Patient and her family are fully vaccinated against COVID-19 and she has had no upper respiratory symptoms or recent sick contacts. No cough or shortness of breath Labs with WBC 8, Hb 12.5, platelets 209, NA 142, K4.1, BUN 14, CR 1, calcium 8.1, magnesium 2, glucose 115, high-sensitivity troponin is 4x2 and NT proBNP is 150 - rapid COVID-19 COVID-19 PCR negative, TSH is 10.891. EKG sinus rhythm rate of [address] segment or T wave abnormalities Repeat EKG sinus rhythm rate of 60 bpm V paced. Chest radiograph with left-sided pacemaker and right basilar opacity. Past Medical History Cardiovascular: Other (SSS/tachy christiano syndrome) Endocrine: Hypothyroidism Past Surgical History Past Surgical History: Pacemaker, Cholecystectomy, Tubal Ligation, Hysterectomy Family History Family History: Hypertension Social History Smoke: No ALCOHOL: none Drugs: None Current Problem List Problem List Problems Medical Problems: (1) Chest pain Status: Acute (2) Pacemaker Status: Acute (3) RLL pneumonia Status: Acute Current Medications Current Medications Current Medications Aspirin (Aspirin Chewable) 324 mg 1X ONCE PO Last administered on 05/04/21at 00:34; Start 05/04/21 at 00:15; Stop 05/04/21 at 00:16; Status DC Acetaminophen (Tylenol) 650 mg PRN Q4HRS PRN PO FEVER > 100.3'F; Start 05/04/21 at 01:30; Stop 05/05/21 at 01:29 Nitroglycerin (Nitrostat) 0.4 mg PRN Q5MIN PRN SL CHEST PAIN; Start 05/04/21 at 01:30; Stop 05/05/21 at 01:29 Azithromycin 500 mg/Sodium Chloride 250 ml @ 250 mls/hr 1X ONCE IV ; Start 05/04/21 at 02:00; Stop 05/04/21 at 02:59; Status Cancel Azithromycin 500 mg/Sodium Chloride 250 ml @ 250 mls/hr 1X ONCE IV Last adm inistered on 05/04/21at 02:11; Start 05/04/21 at 02:00; Stop 05/04/21 at 02:59; Status DC Buspirone HCl (Buspar) 5 mg TID PO ; Start 05/04/21 at 12:00 Active Scripts Active Reported Levothyroxine Sodium 200 Mcg Tablet 1 Tab PO QAM Levothyroxine Sodium 75 Mcg Tablet 1 Tab PO QAM Tizanidine Hcl 4 Mg Tablet 1 Tab PO TID Topiramate 25 Mg Tablet 1 Tab PO BID Allergies Allergies: Coded Allergies: Penicillins (Verified Allergy, Intermediate, 05/04/21) morphine (Verified Allergy, Intermediate, 05/04/21) ROS General: YES: Fatigue, Malaise; No: Chills, Night Sweats, Appetite, Other PSYCHOLOGICAL ROS: YES: Anxiety; No: Behavioral Disorder, Concentration difficultie, Decreased libido, Depression, Disorientation, Hallucinations, Hostility, Irritablity, Memory difficulties, Mood Swings, Obsessive thoughts, Physical abuse, Sexual abuse, Sleep disturbances, Suicidal ideation, Other Eyes: No Blurry vision, No Decreased vision, No Double vision, No Dry eyes, No Excessive tearing, No Eye Pain, No Itchy Eyes, No Loss of vision, No Photophobia, No Scotomata, No Uses contacts, No Uses glasses, No Other HEENT: No: Heacaches, Visual Changes, Hearing change, Nasal congestion, Nasal discharge, Oral lesions, Sinus pain, Sore Throat, Epistaxis, Sneezing, Snoring, Tinnitus, Vertigo, Vocal changes, Other ALLERGY AND IMMUNOLOGY: No: Hives, Insect Bite Sensitivity, Itchy/Watery Eyes, Nasal Congestion, Post Nasal Drip, Seasonal Allergies, Other Hematological and Lymphatic: No: Bleeding Problems, Blood Clots, Blood Transfusions, Brusing, Night Sweats, Pallor, Swollen Lymph Nodes, Other ENDOCRINE: No: Breast Changes, Galactorrhea, Hair Pattern Changes, Hot Flashes, Malaise/lethargy, Mood Swings, Palpitations, Polydipsia/polyuria, Skin Changes, Temperature Intolerance, Unexpected Weight Changes, Other Breast: No New/Changing Breast Lumps, No Nipple changes, No Nipple discharge, No Other Respiratory: No: Cough, Hemoptysis, Orthopnea, Pleuritic Pain, Shortness of breath, SOB with excertion, Sputum Changes, Stridor, Tachypnea, Wheezing, Other Cardiovascular: No Chest Pain, No Palpitations, No Orthopnea, No Paroxysmal Noc. Dyspnea, No Edema, No Lt Headedness, No Other Gastrointestinal: No Nausea, No Vomiting, No Abdominal Pain, No Diarrhea, No Constipation, No Melena, No Hematochezia, No Other Genitourinary: No Dysuria, No Frequency, No Incontinence, No Hematuria, No Retention, No Discharge, No Urgency, No Pain, No Flank Pain, No Other, No , No , No , No , No , No , No Musculoskeletal: No Gait Disturbance, No Joint Pain, No Joint Stiffness, No Joint Swelling, No Muscle Pain, No Muscular Weakness, No Pain In:, No Swelling In:, No Other Neurological: No Behavorial Changes, No Bowel/Bladder ControlChng, No Confusion, No Dizziness, No Gait Disturbance, No Headaches, No Impaired Coord/balance, No Memory Loss, No Numbness/Tingling, No Seizures, No Speech Prob lems, No Tremors, No Visual Changes, No Weakness, No Other Skin: No Dry Skin, No Eczema, No Hair Changes, No Lumps, No Mole Changes, No Mottling, No Nail Changes, No Pruritus, No Rash, No Skin Lesion Changes, No Other, No Acne Physical Exam General: Alert, Oriented X3, Cooperative, No acute distress HEENT: Atraumatic, PERRLA, EOMI, Mucous membr. moist/pink Lungs: Clear to auscultation, Normal air movement Heart: S1S2, RRR, no thrills, no rubs, no gallops, no murmurs Abdomen: Normal bowel sounds, Soft, No tenderness, No hepatosplenomegaly, No masses Rectal Exam: not examined Extremities: No clubbing, No cyanosis, No edema, Normal pulses, No tenderness/swelling Skin: No rashes, No breakdown, No significant lesion Neuro: Normal gait, Normal speech, Strength at 5/5 X4 ext, Normal tone, Sensation intact, Cranial nerves 3-12 NL, Reflexes 2+ Psych/Mental Status: Mental status NL, Mood NL Vitals Vitals Vital Signs Date Time Temp Pulse Resp B/P (MAP) Pulse Ox O2 Delivery O2 Flow Rate FiO2 05/04/21 08:20 Room Air 05/04/21 07:46 97.8 59 20 96/55 (69) 99 97.8 Labs Labs Laboratory Tests Test 05/04/21 00:01 05/04/21 00:30 05/04/21 01:10 05/04/21 07:45 White Blood Count 8.0 x10^3/uL (4.0-11.0) Red Blood Count 3.85 x10^6/uL (3.50-5.40) Hemoglobin 12.5 g/dL (12.0-15.5) Hematocrit 36.3 % (36.0-47.0) Mean Corpuscular Volume 94 fL (79-100) Mean Corpuscular Hemoglobin 32 pg (25-35) Mean Corpuscular Hemoglobin Concent 34 g/dL (31-37) Red Cell Distribution Width 12.6 % (11.5-14.5) Platelet Count 209 x10^3/uL (140-400) Neutrophils (%) (Auto) 49 % (31-73) Lymphocytes (%) (Auto) 41 % (24-48) Monocytes (%) (Auto) 9 % (0-9) Eosinophils (%) (Auto) 1 % (0-3) Basophils (%) (Auto) 1 % (0-3) Neutrophils # (Auto) 3.9 x10^3/uL (1.8-7.7) Lymphocytes # (Auto) 3.3 x10^3/uL (1.0-4.8) Monocytes # (Auto) 0.7 x10^3/uL (0.0-1.1) Eosinophils # (Auto) 0.1 x10^3/uL (0.0-0.7) Basophils # (Auto) 0.0 x10^3/uL (0.0-0.2) Sodium Level 142 mmol/L (136-145) Potassium Level 4.1 mmol/L (3.5-5.1) Chloride Level 109 mmol/L (98-107) Carbon Dioxide Level 26 mmol/L (21-32) Anion Gap 7 (6-14) Blood Urea Nitrogen 14 mg/dL (7-20) Creatinine 1.0 mg/dL (0.6-1.0) Estimated GFR (Cockcroft-Gault) 60.0 Glucose Level 115 mg/dL (70-99) Calcium Level 8.1 mg/dL (8.5-10.1) Magnesium Level 2.0 mg/dL (1.8-2.4) Troponin I High Sensitivity < 4 ng/L (4-50) 4 ng/L (4-50) VN-Enz-I-Type Natriuretic Peptide 150 pg/mL (0-124) SARS-CoV-2 RNA (PEDRO) Negative (Negative) SARS-CoV-2 Antigen (Rapid) Negative (NEGATIVE) Urine Opiates Screen Neg (NEG) Urine Methadone Screen Neg (NEG) Urine Barbiturates Neg (NEG) Urine Phencyclidine Screen Neg (NEG) Urine Amphetamine/Methamphetamine Neg (NEG) Urine Benzodiazepines Screen Neg (NEG) Urine Cocaine Screen Neg (NEG) Urine Cannabinoids Screen Neg (NEG) Urine Ethyl Alcohol Neg (NEG) Laboratory Tests Test 05/04/21 00:01 05/04/21 00:30 05/04/21 01:10 05/04/21 07:45 White Blood Count 8.0 x10^3/uL (4.0-11.0) Red Blood Count 3.85 x10^6/uL (3.50-5.40) Hemoglobin 12.5 g/dL (12.0-15.5) Hematocrit 36.3 % (36.0-47.0) Mean Corpuscular Volume 94 fL (79-100) Mean Corpuscular Hemoglobin 32 pg (25-35) Mean Corpuscular Hemoglobin Concent 34 g/dL (31-37) Red Cell Distribution Width 12.6 % (11.5-14.5) Platelet Count 209 x10^3/uL (140-400) Neutrophils (%) (Auto) 49 % (31-73) Lymphocytes (%) (Auto) 41 % (24-48) Monocytes (%) (Auto) 9 % (0-9) Eosinophils (%) (Auto) 1 % (0-3) Basophils (%) (Auto) 1 % (0-3) Neutrophils # (Auto) 3.9 x10^3/uL (1.8-7.7) Lymphocytes # (Auto) 3.3 x10^3/uL (1.0-4.8) Monocytes # (Auto) 0.7 x10^3/uL (0.0-1.1) Eosinophils # (Auto) 0.1 x10^3/uL (0.0-0.7) Basophils # (Auto) 0.0 x10^3/uL (0.0-0.2) Sodium Level 142 mmol/L (136-145) Potassium Level 4.1 mmol/L (3.5-5.1) Chloride Level 109 mmol/L (98-107) Carbon Dioxide Level 26 mmol/L (21-32) Anion Gap 7 (6-14) Blood Urea Nitrogen 14 mg/dL (7-20) Creatinine 1.0 mg/dL (0.6-1.0) Estimated GFR (Cockcroft-Gault) 60.0 Glucose Level 115 mg/dL (70-99) Calcium Level 8.1 mg/dL (8.5-10.1) Magnesium Level 2.0 mg/dL (1.8-2.4) Troponin I High Sensitivity < 4 ng/L (4-50) 4 ng/L (4-50) QM-Pjo-W-Type Natriuretic Peptide 150 pg/mL (0-124) SARS-CoV-2 RNA (PEDRO) Negative (Negative) SARS-CoV-2 Antigen (Rapid) Negative (NEGATIVE) Urine Opiates Screen Neg (NEG) Urine Methadone Screen Neg (NEG) Urine Barbiturates Neg (NEG) Urine Phencyclidine Screen Neg (NEG) Urine Amphetamine/Methamphetamine Neg (NEG) Urine Benzodiazepines Screen Neg (NEG) Urine Cocaine Screen Neg (NEG) Urine Cannabinoids Screen Neg (NEG) Urine Ethyl Alcohol Neg (NEG) Images Images Chest radiograph: A frontal view of the chest is obtained. A left-sided pacemaker has its leads in the right atrium and right ventricle. There is a mild airspace opacity in the right base. There is no pneumothorax or pleural effusion. The heart is not enlarged. IMPRESSION: 1. Mild right basilar infiltrate. VTE Prophylaxis Ordered VTE Prophylaxis Devices: No VTE Pharmacological Prophylaxi: Yes Assessment/Plan Assessment/Plan A/P: Palpitations - likely anxiety. pacer to be interrogated. no significant telemetry abnormalities SSS/tachy christiano syndrome - biotronik pacemaker Hypothyoidism - TSH 10. Counseled on taking her levothyroxine 225 mcg daily before meals with no other medications FEN - Cardiac diet PPX - ambulatory FULL CODE dispo - observation Justifications for Admission Other Justification ANKITA HERNADEZ MD May 04, 2021 11:45
[2021-05-04] MEDS ORDERED: busPIRone 5 MG TABLET. PO SCH (12:00)
--- NOTE | 2021-05-04 12:37 | NUR ---
SS following for discharge planning. SS reviewed pt chart and discussed with pt RN. Pt is from home with spouse and is currently on room air. COVID19 negative. Cardiology consulted. SS will continue to follow for discharge planning.
[2021-05-04] MEDS ORDERED: BUSP5TAB PO (13:11)
--- NOTE | 2021-05-04 13:51 | NUR ---
DISCHARGE PIV ET TELE DISCONTINUED. DC INFORMATION REVIEWED WITH PATIENT. NEW MEDICATION EDUCATION ON BUSPAR PROVIDED TO PATIENT. DATE AND TIME OF OUTPATIENT ECHO SHARED WITH PATIENT. ALL QUESTIONS ANSWERED FOR PATIENT ET FAMILY MEMBER. ESCORTED TO PERSONAL VEHICLE VIA WHEELCHAIR.
[2021-05-04 14:51] VITALS: BP 97/58
--- NOTE | 2021-05-04 16:09 | PDOC3 ---
Discharge Summary Visit Information Date of Admission: May 03, 2021 Date of Discharge: May 04, 2021 Admitting Diagnosis: Palpitations Final Diagnosis Problems Medical Problems: (1) Chest pain Status: Acute (2) Pacemaker Status: Acute (3) RLL pneumonia Status: Acute Brief Hospital Course Allergies Allergies Coded Allergies Type Severity Reaction Last Updated Verified Penicillins Allergy Intermediate 05/04/21 Yes morphine Allergy Intermediate 05/04/21 Yes Vital Signs Vital Signs Date Time Temp Pulse Resp B/P (MAP) Pulse Ox O2 Delivery O2 Flow Rate FiO2 05/04/21 14:51 98.4 70 18 97/58 (71) 97 Room Air 98.4 Lab Results Laboratory Tests Test 05/04/21 00:01 05/04/21 00:30 05/04/21 01:10 05/04/21 07:45 White Blood Count 8.0 x10^3/uL (4.0-11.0) Red Blood Count 3.85 x10^6/uL (3.50-5.40) Hemoglobin 12.5 g/dL (12.0-15.5) Hematocrit 36.3 % (36.0-47.0) Mean Corpuscular Volume 94 fL (79-100) Mean Corpuscular Hemoglobin 32 pg (25-35) Mean Corpuscular Hemoglobin Concent 34 g/dL (31-37) Red Cell Distribution Width 12.6 % (11.5-14.5) Platelet Count 209 x10^3/uL (140-400) Neutrophils (%) (Auto) 49 % (31-73) Lymphocytes (%) (Auto) 41 % (24-48) Monocytes (%) (Auto) 9 % (0-9) Eosinophils (%) (Auto) 1 % (0-3) Basophils (%) (Auto) 1 % (0-3) Neutrophils # (Auto) 3.9 x10^3/uL (1.8-7.7) Lymphocytes # (Auto) 3.3 x10^3/uL (1.0-4.8) Monocytes # (Auto) 0.7 x10^3/uL (0.0-1.1) Eosinophils # (Auto) 0.1 x10^3/uL (0.0-0.7) Basophils # (Auto) 0.0 x10^3/uL (0.0-0.2) Sodium Level 142 mmol/L (136-145) Potassium Level 4.1 mmol/L (3.5-5.1) Chloride Level 109 mmol/L (98-107) Carbon Dioxide Level 26 mmol/L (21-32) Anion Gap 7 (6-14) Blood Urea Nitrogen 14 mg/dL (7-20) Creatinine 1.0 mg/dL (0.6-1.0) Estimated GFR (Cockcroft-Gault) 60.0 Glucose Level 115 mg/dL (70-99) Calcium Level 8.1 mg/dL (8.5-10.1) Magnesium Level 2.0 mg/dL (1.8-2.4) Troponin I High Sensitivity < 4 ng/L (4-50) 4 ng/L (4-50) AB-Uvo-O-Type Natriuretic Peptide 150 pg/mL (0-124) SARS-CoV-2 RNA (PEDRO) Negative (Negative) SARS-CoV-2 Antigen (Rapid) Negative (NEGATIVE) Urine Opiates Screen Neg (NEG) Urine Methadone Screen Neg (NEG) Urine Barbiturates Neg (NEG) Urine Phencyclidine Screen Neg (NEG) Urine Amphetamine/Methamphetamine Neg (NEG) Urine Benzodiazepines Screen Neg (NEG) Urine Cocaine Screen Neg (NEG) Urine Cannabinoids Screen Neg (NEG) Urine Ethyl Alcohol Neg (NEG) Thyroid Stimulating Hormone (TSH) 10.891 uIU/mL (0.358-3.74) Laboratory Tests Test 05/04/21 00:01 05/04/21 00:30 05/04/21 01:10 05/04/21 07:45 White Blood Count 8.0 x10^3/uL (4.0-11.0) Red Blood Count 3.85 x10^6/uL (3.50-5.40) Hemoglobin 12.5 g/dL (12.0-15.5) Hematocrit 36.3 % (36.0-47.0) Mean Corpuscular Volume 94 fL (79-100) Mean Corpuscular Hemoglobin 32 pg (25-35) Mean Corpuscular Hemoglobin Concent 34 g/dL (31-37) Red Cell Distribution Width 12.6 % (11.5-14.5) Platelet Count 209 x10^3/uL (140-400) Neutrophils (%) (Auto) 49 % (31-73) Lymphocytes (%) (Auto) 41 % (24-48) Monocytes (%) (Auto) 9 % (0-9) Eosinophils (%) (Auto) 1 % (0-3) Basophils (%) (Auto) 1 % (0-3) Neutrophils # (Auto) 3.9 x10^3/uL (1.8-7.7) Lymphocytes # (Auto) 3.3 x10^3/uL (1.0-4.8) Monocytes # (Auto) 0.7 x10^3/uL (0.0-1.1) Eosinophils # (Auto) 0.1 x10^3/uL (0.0-0.7) Basophils # (Auto) 0.0 x10^3/uL (0.0-0.2) Sodium Level 142 mmol/L (136-145) Potassium Level 4.1 mmol/L (3.5-5.1) Chloride Level 109 mmol/L (98-107) Carbon Dioxide Level 26 mmol/L (21-32) Anion Gap 7 (6-14) Blood Urea Nitrogen 14 mg/dL (7-20) Creatinine 1.0 mg/dL (0.6-1.0) Estimated GFR (Cockcroft-Gault) 60.0 Glucose Level 115 mg/dL (70-99) Calcium Level 8.1 mg/dL (8.5-10.1) Magnesium Level 2.0 mg/dL (1.8-2.4) Troponin I High Sensitivity < 4 ng/L (4-50) 4 ng/L (4-50) YX-Kmg-M-Type Natriuretic Peptide 150 pg/mL (0-124) SARS-CoV-2 RNA (PEDRO) Negative (Negative) SARS-CoV-2 Antigen (Rapid) Negative (NEGATIVE) Urine Opiates Screen Neg (NEG) Urine Methadone Screen Neg (NEG) Urine Barbiturates Neg (NEG) Urine Phencyclidine Screen Neg (NEG) Urine Amphetamine/Methamphetamine Neg (NEG) Urine Benzodiazepines Screen Neg (NEG) Urine Cocaine Screen Neg (NEG) Urine Cannabinoids Screen Neg (NEG) Urine Ethyl Alcohol Neg (NEG) Thyroid Stimulating Hormone (TSH) 10.891 uIU/mL (0.358-3.74) Brief Hospital Course Ms. Quintana is a 46-year-old female with past medical history of hypothyroidism, sick sinus syndrome status post dual-chamber pacemaker. 2018 who comes to the ED on 05/03/2021 accompanied by her complaining of persistent palpitations. Palpitations began when she was going to bed and she tried relaxation maneuvers to no avail. She became nauseated and felt chest pressure and became diaphoretic she felt tingling into her her left jaw shoulder and came to the ED. She has been under significant stress recently because her son in his late 20s lives with her and has been recurrently admitted for alcoholic pancreatitis and continues to drink in the home. She is also stressed about the recent of her mother from COVID-19. Patient and her family are fully vaccinated against COVID-19 and she has had no upper respiratory symptoms or recent sick contacts. No cough or shortness of breath Labs with WBC 8, Hb 12.5, platelets 209, NA 142, K4.1, BUN 14, CR 1, calcium 8.1, magnesium 2, glucose 115, high-sensitivity troponin is 4x2 and NT proBNP is 150 - rapid COVID-19 COVID-19 PCR negative, TSH is 10.891. EKG sinus rhythm rate of [address] segment or T wave abnormalities Repeat EKG sinus rhythm rate of 60 bpm V paced. Chest radiograph with left-sided pacemaker and right basilar opacity. Consult with cardiology and pacemaker interrogated no abnormalities. Counseled on importance of levothyroxine compliance and given a dose of BuSpar which helped with her anxiety and given prescription for BuSpar. Has outpatient echocardiogram next week and will follow this. HEENT: Head normocephalic, atraumatic. NECK: Supple LUNGS: Clear to auscultation. HEART: RRR, S1, S2 present, pulses intact ABDOMEN: Soft, positive bowel sounds. EXTREMITIES: No cyanosis or edema. NEUROLOGIC: Normal speech, normal tone PSYCHIATRIC: Normal affect, normal mood. SKIN: No ulceration. Problem list: Palpitations - likely anxiety. pacer to be interrogated. no significant telemetry abnormalities SSS/tachy christiano syndrome - biotronik pacemaker Hypothyoidism - TSH 10. Counseled on taking her levothyroxine 225 mcg daily before meals with no other medications Greater than 135 minutes spent on same day admit and d/c Discharge Information Condition at Discharge: Improved Follow Up: Weeks (1) Disposition/Orders: D/C to Home Scheduled Levothyroxine Sodium (Levothyroxine Sodium) 75 Mcg Tablet, 1 TAB PO QAM for , (Reported) Entered as Reported by: Alice Patiño on 05/04/21335 Last Action: New Order on 05/04/21335 by Alice Patiño Levothyroxine Sodium (Levothyroxine Sodium) 200 Mcg Tablet, 1 TAB PO QAM for , (Reported) Entered as Reported by: Alice Patiño on 05/04/21335 Last Action: New Order on 05/04/21335 by Alice Patiño Tizanidine Hcl (Tizanidine Hcl) 4 Mg Tablet, 1 TAB PO TID for , (Reported) Entered as Reported by: Alice Patiño on 05/04/21335 Last Action: New Order on 05/04/21335 by Alice Patiño Topiramate (Topiramate) 25 Mg Tablet, 1 TAB PO BID for , (Reported) Entered as Reported by: Alice Patiño on 05/04/21335 Last Action: New Order on 05/04/21335 by Alice Patiño Scheduled PRN Buspirone Hcl (Buspirone Hcl) 5 Mg Tablet, 5 MG PO PRN TID PRN for ANXIETY / AGITATION for 30 Days, #90 Ref 2 Prescribed by: ANKITA HERNADEZ MD on 05/04/211310 Justicifation of Admission Dx: Justifications for Admission: Justification of Admission Dx: Yes ANKITA HERNADEZ MD May 04, 2021 16:08
== END 2021-05-04 13:45 | disposition home or self-care (01) | DRG 308 ==
LOC: ER 23:38 → 6 SOUTH 05-04 01:26
PROVIDERS: ADMIT Internal Medicine; ATTEND Internal Medicine
PROC: 4B02XSZ Measurement of Cardiac Pacemaker, External Approach (ICD-10-PCS; principal; 2021-05-04)
DX: I49.5 Sick sinus syndrome (principal); J18.9 Pneumonia, unspecified organism; E03.9 Hypothyroidism, unspecified; F41.9 Anxiety disorder, unspecified; Z82.49 Family history of ischemic heart disease and other diseases of the circulatory system; Z90.710 Acquired absence of both cervix and uterus; Z95.0 Presence of cardiac pacemaker; Z98.51 Tubal ligation status; Z20.822 Contact with and (suspected) exposure to COVID-19; Z88.5 Allergy status to narcotic agent; Z88.0 Allergy status to penicillin
CPT/HCPCS: 36415; 71045; 80048; 80307; 83735; 83880; 84443; 84484; 85025; 87040; 87426; 93005; 96365; J0456; J7050; U0003; U0005; 99285-25; G0378; J7030

== ENCOUNTER → 2021-05-10 | Outpatient (CLI) | payer MEDICAID ==
[2021-05-04 14:51] VITALS: BP 97/58
[~2021-05-10] MED LIST changes: +BUSP5TAB PO; +LEVO200T5 PO; +LEVO75TA5 PO; +TIZA-75 PO; +TOPI25TA7 PO
--- NOTE | 2021-05-11 10:28 | CARD ---
MR#: [id number] Date of Study: 05/10/2021 Ordering Physician: BECK ROMERO, Referring Physician: BECK ROMERO, Tech: Ava Sood [facility] APPROVED REPORT EXAM: Two-dimensional and M-mode echocardiogram with Doppler and color Doppler. Other Information Quality : AverageHR: 52bpm INDICATION Ventricular Tachycardia 2D DIMENSIONS RVDd3.3 (2.9-3.5cm)Left Atrium(2D)3.5 (1.6-4.0cm) IVSd1.0 (0.7-1.1cm)Aortic Root(2D)3.0 (2.0-3.7cm) LVDd4.9 (3.9-5.9cm)LVOT Diameter2.0 (1.8-2.4cm) PWd1.0 (0.7-1.1cm)LVDs3.4 (2.5-4.0cm) FS (%) 29.7 %SV62.7 ml Aortic Valve AoV Peak Elder.132.5cm/sAoV VTI30.5cm AO Peak GR.7.0mmHgLVOT Peak Elder.120.5cm/s LVOT VTI 27.20cmAO Mean GR.4mmHg WINIFRED (VMAX)2.56gg1WKR (VTI)2.91cm2 Mitral Valve MV E Amnvcxdw82.1cm/sMV DECEL DIID171xv MV A Gxbhlrnm84.7cm/sMV E Mean Gr.1mmHg MV AYY95zsR/A Ratio2.5 MVA (PHT)3.52cm2 TDI E/Lateral E'7.6E/Medial E'7.5 Pulmonary Valve PV Peak Cqmieexq15.0cm/sPV Peak Grad.4mmHg Tricuspid Valve TR P. Efrjbmni456by/sRAP [id number] TR Peak Gr.91jwMsDQHL01rgLl Pulmonary Vein S1 Gsyjzins27.5cm/sD2 Omrzvfje87.8cm/s PVa [id number] LEFT VENTRICLE The left ventricle is normal size. There is normal left ventricular wall thickness. The left ventricu lar systolic function is normal and the ejection fraction is within normal range. The Ejection Fracti on is 55-60%. There is normal LV segmental wall motion. The left ventricular diastolic function and f illing is normal for age. RIGHT VENTRICLE The right ventricle is normal size. There is normal right ventricular wall thickness. The right ventr icular systolic function is normal. ATRIA The left atrium size is normal. The right atrium size is normal. The interatrial septum is intact wit h no evidence for an atrial septal defect or patent foramen ovale as noted on 2-D or Doppler imaging. AORTIC VALVE The aortic valve is normal in structure and function. Doppler and Color Flow revealed no significant aortic regurgitation. There is no significant aortic valvular stenosis. Calculated aortic valve area is 2.99 cm2 with maximum pressure gradient of 8 mmHg and mean pressure gradient of 4 mmHg. MITRAL VALVE The mitral valve is normal in structure and function. There is no evidence of mitral valve prolapse. There is no mitral valve stenosis. Doppler and Color-flow revealed trace mitral regurgitation. TRICUSPID VALVE The tricuspid valve is normal in structure and function. Doppler and Color Flow revealed trace to mil d tricuspid regurgitation with an estimated PAP of 32 mmHg. There is no tricuspid valve stenosis. PULMONIC VALVE The pulmonic valve is not well visualized. Doppler and Color Flow revealed trace pulmonic valvular re gurgitation. GREAT VESSELS The aortic root is normal in size. The ascending aorta is normal in size. The IVC is normal in size a nd collapses >50% with inspiration. PERICARDIAL EFFUSION There is no evidence of significant pericardial effusion. Critical Notification Critical Value: No <Conclusion> The left ventricle is normal size. The left ventricular systolic function is normal and the ejection fraction is within normal range. The Ejection Fraction is 55-60%. There is normal LV segmental wall motion. There is normal left ventricular wall thickness. Doppler and Color Flow revealed no significant aortic regurgitation. There is no significant aortic valvular stenosis. Doppler and Color-flow revealed trace mitral regurgitation. Doppler and Color Flow revealed trace to mild tricuspid regurgitation with an estimated PAP of 32 mmH g. Signed by : Brock Beard MD Electronically Approved : 05/11/2021 10:27:59
== END ==
LOC: ECHO 09:58
PROVIDERS: ATTEND Internal Medicine Cardiovascular Disease
DX: I07.1 Rheumatic tricuspid insufficiency (principal); I47.1 Supraventricular tachycardia
CPT/HCPCS: 93306; C8929